=== PATIENT | male | born 2000 | race Hispanic/Latino ===

== ENCOUNTER 2021-02-16 15:05 | Emergency (ER) | payer OTHER ==
[~2021-02-16] VITALS: Ht 170.2 cm; Wt 77.1 kg
[2021-02-16] MEDS: ACETAMINOPHEN 500 MG TABLET PO ONE (15:37)
[2021-02-16] MEDS: ACETAMINOPHEN 500 MG TABLET ONE (15:38)
[2021-02-16 15:55] LABS: APPEARANCE,URINE Clear (CLEAR); BILIRUBIN,URINE Negative (NEGATIVE); COLOR,URINE Yellow (YELLOW); GLUCOSE, URINE (UA) Negative (NEGATIVE); KETONES,URINE Trace mg/dL (NEGATIVE); LEUKOCYTE ESTERASE ,URINE Negative (NEGATIVE); NITRATE,URINE Negative (NEGATIVE); OCCULT BLOOD,URINE Trace (NEGATIVE); PH,URINE 6.5 (5.0-8.0); PROTEIN,URINE POS 2+ mg/dL (NEGATIVE)
[2021-02-16 16:02] LABS: BASOPHILS % (AUTO) 0.4 % (0.0-5.0); LYMPHOCYTES % (AUTO) 20.3 % (21.0-51.0); MEAN CORPUSCULAR HEMOGLOBIN 28.8 pg (27.0-33.0); MEAN CORPUSCULAR VOLUME 82.3 fL (79-99); MONOCYTES % (AUTO) 11.1 % (3.0-13.0); NEUTROPHILS % (AUTO) 67.5 % (40.0-77.0); PLATELET COUNT (AUTO) 145 K/uL (130-400); RED BLOOD CELL COUNT(AUTO) 4.86 MIL/uL (4.50-6.20); RED CELL DISTRIBUTION WIDTH 11.9 % (11.0-15.5); WHITE BLOOD COUNT (AUTO) 7.2 K/uL (4.8-10.8)
[2021-02-16] MEDS: 0.9%NACL 1000ML 1,000 ML IV ONE (16:21)
[2021-02-16] MEDS: IBUPROFEN 800 MG TAB PO ONE (16:21)
[2021-02-16 16:25] LABS: BACTERIA,URINE Few /HPF (None Seen); MUCUS,URINE Few LPF (None Seen); SQUAMOUS EPITHELIAL CELL,UR Rare /HPF (0-2)
[2021-02-16 16:26] LABS: CREATININE 1.1 mg/dL (0.5-1.5); POTASSIUM 3.3 mmol/L (3.5-5.1)
[2021-02-16 16:30] LABS: ALBUMIN 4.1 g/dL (3.5-5.0); BILIRUBIN,TOTAL 1.2 mg/dL (0.2-1.0); CRP QUANTITATIVE 110.5 mg/L (0.00-9.0); TOTAL PROTEIN, SERUM 8.3 g/dL (6.0-8.3)
[2021-02-16] MEDS ORDERED: AMOX-429 PO (17:48)
[2021-02-16] MEDS ORDERED: ACET-2247 PO (17:48)
[2021-02-16] MEDS: 0.9%NACL 50ML 50 ML IV ONE (18:02)
[2021-02-16] MEDS: CEFTRIAXONE 1G VIAL IVP ONE (18:02)
[2021-02-16 18:28] VITALS: BP 128/78
== END 2021-02-16 18:44 | disposition home or self-care (01) ==
LOC: EDH 15:05
DX: J02.0 Streptococcal pharyngitis (principal); Z79.1 Long term (current) use of non-steroidal anti-inflammatories (NSAID)
CPT/HCPCS: 36415; 71045; 80053; 81001; 83605; 85025; 86140; 87040 ×2; 87804 ×2; 87880; 96361; 96365; 99284; J0696; J7030